=== PATIENT | female | born 1925 | race Hispanic/Latino ===

== ENCOUNTER 2016-07-04 08:50 | Inpatient (IN) | payer MEDICARE, OTHER ==
[2016-07-04 08:53] VITALS: BMI 23.8
[2016-07-04] MEDS ORDERED: Sodium Chloride 0.9% 500 ML IV ONE ×2 (09:37→10:00)
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
[2016-07-04 10:10] LABS: HEMATOCRIT 15.7 % (34.0-47.0); MEAN PLATELET VOLUME 7.8 fL (7.2-11.7)
[2016-07-04 10:16] LABS: MEAN CELL VOLUME 83.5 fL (81.0-99.0); MEAN CORPUSCULAR HEMOGLOBIN 26.9 pg (27.0-31.0); MEAN CORPUSCULAR HGB CONC 32.2 g/dL (33.0-37.0); WHITE BLOOD COUNT 31.4 K/uL (4.8-10.8)
[2016-07-04 10:20] LABS: PLATELET COUNT 16 K/uL (130-400); POTASSIUM 4.2 mmol/L (3.6-5.2)
[2016-07-04 10:21] LABS: INR 1.2
[2016-07-04 10:22] LABS: ALB/GLOB RATIO 1.1 (1.0-2.1); BILIRUBIN,TOTAL 0.7 mg/dL (0.2-1.3); TOTAL PROTEIN 6.1 g/dL (6.3-8.3)
[2016-07-04 10:23] LABS: CALCIUM 8.2 mg/dl (8.6-10.4)
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
[2016-07-04 10:45] LABS: LYMPH # 3.1 K/uL (1.0-4.3); MONO # 0.3 K/uL (0.0-0.8)
[2016-07-04 11:04] LABS: BLASTS 2 % (0-0); METAMYELOCYTE 10 % (0-0); MYELOCYTE 1 % (0-0); NEUTROPHIL 2 % (50-75); PROMYELOCYTE 1 % (0-0); REACTIVE LYMPHOCYTES 27 % (0-0); TOTAL CELLS COUNTED 100
--- NOTE | 2016-07-04 16:36 | RAD ---
PROCEDURE: CHEST RADIOGRAPH, 1 VIEW HISTORY: admission COMPARISON: 06/10/2016 FINDINGS: LUNGS: Clear. PLEURA: No pneumothorax or pleural fluid seen. CARDIOVASCULAR: Normal. OSSEOUS STRUCTURES: No significant abnormalities. VISUALIZED UPPER ABDOMEN: Normal. OTHER FINDINGS: None. IMPRESSION: No active disease.
[2016-07-04] MEDS: (Novolog) Insulin Aspart, Recombinant 100 u/ml 10 ml vial SC SCH (21:58)
[2016-07-05] MEDS: (Novolog) Insulin Aspart, Recombinant 100 u/ml 10 ml vial SC SCH ×4 (08:21→21:58)
[2016-07-05 08:31] LABS: RED CELL DISTRIBUTION WIDTH 17.2 % (11.5-14.5)
[2016-07-05 08:38] LABS: MEAN CELL VOLUME 83.7 fL (81.0-99.0); MEAN CORPUSCULAR HEMOGLOBIN 28.1 pg (27.0-31.0); MEAN CORPUSCULAR HGB CONC 33.6 g/dL (33.0-37.0); MEAN PLATELET VOLUME 11.5 fL (7.2-11.7); WHITE BLOOD COUNT 34.1 K/uL (4.8-10.8)
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
--- NOTE | 2016-07-06 00:31 | PN ---
DATE: 07/05/2016 SUBJECTIVE: The patient is seen today, 07/05/2016. She is not in any cardiopulmonary distress. The patient is status post packed RBCs transfusion. PHYSICAL EXAMINATION: VITAL SIGNS: Blood pressure is 137/72, temperature 97.8, respiratory rate 20, and pulse 65. HEENT: Pupils equal, reactive to light. Normal-appearing mucosa of the conjunctivae, oropharyngeal and nasal membrane mucosa. NECK: Supple, no JVD, no carotid bruit. No lymph node. No thyromegaly. CHEST AND LUNGS: Bilateral symmetrical expansion, good air exchange, no rales, no rhonchi. CARDIOVASCULAR: PMI not localized. S1, S2. No additional sounds. ABDOMEN: Normoactive bowel sounds, no tenderness, no organomegaly, no masses. EXTREMITIES: No cyanosis, no clubbing, no edema. CENTRAL NERVOUS SYSTEM: The patient is awake, but disoriented and confused and moves all extremities equally. ASSESSMENT: 1. 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 2. hypertension. 3. Thrombocytopenia. 4. Increased white count, leukemia. PLAN: Follow up with hematology consult, Dr. Mueller, and continue current medications. Sarika Ray MD cc: 167 TT: 07/06/2016 00:30:54 Confirmation # [id number] Dictation # [id number] mn
[2016-07-06 06:27] LABS: BASO % 1.7 % (0.0-2.0); EOS # 0.1 K/uL (0.0-0.7); EOS % 0.3 % (0.0-4.0); HEMATOCRIT 25.5 % (34.0-47.0); LYMPH # 3.2 K/uL (1.0-4.3); LYMPH % 10.7 % (20.0-40.0); MEAN CELL VOLUME 84.1 fL (81.0-99.0); MEAN CORPUSCULAR HEMOGLOBIN 28.1 pg (27.0-31.0); MEAN CORPUSCULAR HGB CONC 33.4 g/dL (33.0-37.0); MEAN PLATELET VOLUME 11.2 fL (7.2-11.7); MONO # 1.2 K/uL (0.0-0.8); MONO % 3.9 % (0.0-10.0); RED CELL DISTRIBUTION WIDTH 16.9 % (11.5-14.5); WHITE BLOOD COUNT 29.8 K/uL (4.8-10.8)
[2016-07-06 07:25] LABS: BASO # 0.5 K/uL (0.0-0.2)
[2016-07-06 07:26] LABS: PLATELET COUNT 14 K/uL (130-400)
[2016-07-06] MEDS: (Novolog) Insulin Aspart, Recombinant 100 u/ml 10 ml vial SC SCH ×4 (08:06→21:43)
--- NOTE | 2016-07-06 08:24 | HP ---
This is an 89-year-old female with history of multiple medical problems including myelodysp lasia with multiple hospital admissions for blood transfusion. [facility]. The patient complete blood count. Last blood count was on the day prio r to admission and was a hemoglobin of 6. The patient was transferred to Emergency Room where she wa s evaluated and she was found to have a hemoglobin of 5, white blood cell count 31.4, and platelet of 16. The patient was started on blood transfusion in the Emergency Room and she was she was admitted for further management. The patient did not have any emerged symptoms of chest pain, shortness of b reath, was negative. ALLERGY: No allergy. HOME MEDICATIONS: Include repaglinide mg once a day, acarbose 25 mg twice a day, Uloric 8 mg d aily, colchicine 0.6 mg daily, Zoloft 50 mg daily. SOCIAL HISTORY: No history of smoking, ETOH, or substance abuse. FAMILY HISTORY: Noncontributory. PAST MEDICAL HISTORY: Type 2 diabetes mellitus, dementia, myelodysplasia, hypertension. PHYSICAL EXAMINATION: The patient is in bed, comfortable. Not in any cardiopulmonary distress at the time of this examinat ion. Blood pressure 125/60, temperature 97.4, respiratory rate 20, and pulse 81. HEENT: Pupils equal, react to light. Normal-appearing mucosa of the conjunctivae, oropharyngeal, an d nasal membrane mucosa. NECK: No JVD. No carotid bruit, no lymph node, no thyromegaly. CHEST AND LUNGS: Bilateral symmetrical expansion. Good air exchange. No rales, no rhonchi. CARDIOVASCULAR SYSTEM: PMI not localized. S1, S2. No additional sounds. ABDOMEN: Normoactive bowel sounds, no tenderness, no organomegaly, no masses. EXTREMITIES: No cyanosis, no clubbing, no edema. CENTRAL NERVOUS SYSTEM: Alert, awake, but she is confused and disoriented to person, time, and place . Moves all extremities equally. ASSESSMENT: 1. Severe anemia, likely secondary to myelodysplasia. 2. Leukocytosis, rule out leukemia. 3. Type 2 diabetes mellitus. 4. Dementia. PLAN: Continue with the blood transfusion. Hematology consult, and follow recommendations. Will do Accu-Cheks with insulin coverage. Physical therapy. Alvin Venkatesh Ray MD cc: 167 TT: 07/04/2016 19:44:59 jn
[2016-07-06 10:33] LABS: BLASTS 5 % (0-0); METAMYELOCYTE 4 % (0-0); MYELOCYTE 6 % (0-0); NEUTROPHIL 6 % (50-75); REACTIVE LYMPHOCYTES 46 % (0-0); TOTAL CELLS COUNTED 100
[2016-07-06 16:20] VITALS: O2SAT 97
--- NOTE | 2016-07-07 02:54 | PN ---
DATE: 07/06/2016 SUBJECTIVE: The patient is seen today 07/06/2016, she is awake and conscious. PHYSICAL EXAMINATION VITAL SIGNS: Blood pressure 149/76. Temperature 99.3, respiratory rate 20, and pulse is 66. HEENT: Pupils equal, reactive to light. Normal-appearing mucosa of the conjunctivae, oropharyngeal and nasal membrane mucosa. NECK: Supple, no JVD, no carotid bruit, no lymph node, no thyromegaly. CHEST AND LUNGS: Bilateral symmetrical expansion, good air exchange, no rales, no rhonchi. CARDIOVASCULAR: PMI not localized, S1 and S2. No additional sounds. ABDOMEN: Normoactive bowel sounds, no tenderness, no organomegaly, no masses. EXTREMITIES: No cyanosis, no clubbing, no edema. CENTRAL NERVOUS SYSTEM: Awake and confused and moves all extremities equally. ASSESSMENT: 1. Anemia/thrombocytopenia secondary to myelodysplasia. 2. Leukocytosis with possible . PLAN: Follow up recommendations of . Continue current medications. Sarika Ray MD cc: 167 TT: 07/07/2016 02:53:17 Confirmation # [id number] Dictation # [id number] mn
[2016-07-07 06:47] LABS: HEMATOCRIT 25.9 % (34.0-47.0); MEAN CELL VOLUME 84.5 fL (81.0-99.0); MEAN CORPUSCULAR HEMOGLOBIN 28.9 pg (27.0-31.0); MEAN CORPUSCULAR HGB CONC 34.2 g/dL (33.0-37.0); MEAN PLATELET VOLUME 10.7 fL (7.2-11.7); RED CELL DISTRIBUTION WIDTH 17.1 % (11.5-14.5); WHITE BLOOD COUNT 29.1 K/uL (4.8-10.8)
[2016-07-07 06:55] LABS: PLATELET COUNT 12 K/uL (130-400)
[2016-07-07] MEDS: (Novolog) Insulin Aspart, Recombinant 100 u/ml 10 ml vial SC SCH ×2 (08:20→12:48)
[2016-07-07 08:43] VITALS: PULSE 83; RESP 18; TEMP 98.1
[2016-07-07 08:44] VITALS: BP 131/61
[2016-07-07 10:39] LABS: MONO # 1.2 K/uL (0.0-0.8)
[2016-07-07 10:48] LABS: EOSINOPHIL 1 % (0-4); METAMYELOCYTE 4 % (0-0); MYELOCYTE 5 % (0-0); NEUTROPHIL 2 % (50-75); REACTIVE LYMPHOCYTES 50 % (0-0); TOTAL CELLS COUNTED 100
[2016-07-07 10:49] LABS: BLASTS 4 % (0-0)
--- NOTE | 2016-07-07 12:42 | CP.PCM.PN ---
Subjective - Date & Time of Evaluation Date of Evaluation: 07/07/16 Time of Evaluation: 12:35 - Subjective Subjective: 89 Y/O FEMALE WITH PMHX MDS, FREQUENT BLOOD TRANSFUSION, SEVERE ANEMIA, S/P 2 UNITS PRBC, REPEAT H/H 8.9/25.9, PLT 12, LAB RESULT DISCUSSED W/ DR MCINTOSH AND DR WALTON, NO NEED FOR TRANSFUSION PER DR WALTON, RESP EASY AND UNLABORED, NAD, PT DISCHARGE TO [facility] PER DR MCINTOSH, MED REC DONE PER DR MCINTOSH, REPEAT MIKE IN ONE WEEK, F/U W/DR BRISENO IN ONE WEEK, CALL DR MCINTOSH OFFICE IF ANY FURTHER QUESTION, RETURN TO ED IF ANY WORSENING S/S, AGREE, VERBALIZE UNDERSTANDING. Objective - Vital Signs/Intake and Output Vital Signs (last 24 hours): Temp Pulse Resp BP Pulse Ox 98.1 F 83 18 131/61 97 07/07/16 08:42 07/07/16 08:42 07/07/16 08:42 07/07/16 08:42 07/07/16 08:42 Intake and Output: 07/07/16 07/07/16 06:59 18:59 Intake Total 500 Balance 500 - Medications Medications: Current Medications Colchicine (Colocrys) 0.6 mg PO DAILY [facility] Last Admin: 07/07/16 10:29 Dose: 0.6 mg Insulin Aspart (Novolog) 0 unit SC ACHS [facility] PRN Reason: Protocol Last Admin: 07/07/16 08:20 Dose: 2 unit Sertraline HCl (Zoloft) 50 mg PO HS [facility] Last Admin: 07/06/16 21:43 Dose: 50 mg Sodium Bicarbonate (Sodium Bicarbonate Tab) 650 mg PO BID [facility] Last Admin: 07/07/16 10:29 Dose: 650 mg - Labs Labs: 07/07/16 06:00 PT 12.9 SECONDS (9.7-12.2) H 07/04/16 10:00 INR 1.2 07/04/16 10:00 APTT 23 SECONDS (21-34) 07/04/16 10:00
--- NOTE | 2016-07-08 10:38 | DS ---
REASON FOR ADMISSION: This is an 89-year-old female with history of multiple medical probl ems who was admitted through Emergency Room for severe anemia secondary to myelodysplasia and thrombo cytopenia. COURSE OF HOSPITALIZATION: The patient was admitted to medical floor and she had hematology/oncology consultation done by Dr. Mueller's group. The patient was transfused 2 units of packed RBCs and hemog lobin increased from 5 current to 9. The patient was monitored in the hospital, was and she wa s discharged in stable condition back to [facility] to monitor her hemoglobin and hematocrit and t o physical therapy as tolerated. Antiplatelet therapy will be also stopped as patient will be moved to [facility]. 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 Sarika Ray MD cc: 167 TT: 07/08/2016 10:37:52 an
== END 2016-07-07 15:00 | DRG 812 ==
LOC: C.ER 08:50 → C.9E 11:03 → C.6T 11:42
PROVIDERS: ADMIT Internal Medicine; ATTEND Internal Medicine
PROC: 30233N1 Transfusion of Nonautologous Red Blood Cells into Peripheral Vein, Percutaneous Approach (ICD-10-PCS; principal; 2016-07-04)
DX: D46.9 Myelodysplastic syndrome, unspecified (principal); D61.818 Other pancytopenia; E11.22 Type 2 diabetes mellitus with diabetic chronic kidney disease; I12.9 Hypertensive chronic kidney disease with stage 1 through stage 4 chronic kidney disease, or unspecified chronic kidney disease; N18.9 Chronic kidney disease, unspecified; G30.9 Alzheimer's disease, unspecified; F02.80 Dementia in other diseases classified elsewhere, unspecified severity, without behavioral disturbance, psychotic disturbance, mood disturbance, and anxiety; M16.10 Unilateral primary osteoarthritis, unspecified hip; E78.5 Hyperlipidemia, unspecified; Z79.84 Long term (current) use of oral hypoglycemic drugs; Z98.49 Cataract extraction status, unspecified eye; Z95.2 Presence of prosthetic heart valve; Z90.710 Acquired absence of both cervix and uterus; D72.829 Elevated white blood cell count, unspecified; Z87.01 Personal history of pneumonia (recurrent)

== ENCOUNTER 2016-07-12 23:40 | Inpatient (IN) | payer MEDICARE, OTHER ==
[2016-07-12 23:58] VITALS: BMI 23.1
[2016-07-13] MEDS ORDERED: Sodium Chloride 0.9% 500 ML IV ONE (00:27)
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
[2016-07-13 01:19] LABS: BASO # 0.3 K/uL (0.0-0.2); BASO % 0.6 % (0.0-2.0); EOS # 0.1 K/uL (0.0-0.7); EOS % 0.1 % (0.0-4.0); HEMATOCRIT 18.6 % (34.0-47.0); LYMPH # 2.9 K/uL (1.0-4.3); LYMPH % 6.5 % (20.0-40.0); MEAN CELL VOLUME 83.7 fL (81.0-99.0); MEAN CORPUSCULAR HEMOGLOBIN 27.8 pg (27.0-31.0); MEAN CORPUSCULAR HGB CONC 33.2 g/dL (33.0-37.0); MEAN PLATELET VOLUME 12.5 fL (7.2-11.7); MONO # 0.2 K/uL (0.0-0.8); MONO % 0.4 % (0.0-10.0); NRBC % 0.1 % (0.0-2.0); RED CELL DISTRIBUTION WIDTH 16.7 % (11.5-14.5)
[2016-07-13 01:23] LABS: POTASSIUM 4.1 mmol/L (3.6-5.2)
[2016-07-13 01:25] LABS: BILIRUBIN,TOTAL 0.7 mg/dL (0.2-1.3); TOTAL PROTEIN 6.1 g/dL (6.3-8.3)
[2016-07-13 01:26] LABS: CALCIUM 8.8 mg/dl (8.6-10.4)
[2016-07-13 01:31] LABS: WHITE BLOOD COUNT 44.5 K/uL (4.8-10.8)
[2016-07-13 01:32] LABS: PLATELET COUNT 10 K/uL (130-400)
[2016-07-13 01:45] LABS: INR 1.2
[2016-07-13 02:47] LABS: BLASTS 6 % (0-0); EOSINOPHIL 1 % (0-4); METAMYELOCYTE 6 % (0-0); MYELOCYTE 6 % (0-0); NEUTROPHIL 39 % (50-75); REACTIVE LYMPHOCYTES 9 % (0-0); TOTAL CELLS COUNTED 100
[2016-07-13 02:49] LABS: SPHEROCYTES SLIGHT
[2016-07-13 02:50] LABS: GIANT PLATELETS PRESENT
[2016-07-13 03:35] LABS: RBC URINE 18 /hpf (0-3); URINE BACTERIA MANY (<OCC); URINE BILIRUBIN NEGATIVE (NEGATIVE); URINE BLOOD 1+ (NEGATIVE); URINE COLOR Amber (YELLOW); URINE GLUCOSE (UA) 2+ mg/dL (Normal); URINE KETONE NEGATIVE (NEGATIVE); URINE LEUKOCYTE ESTERASE 1+ Leu/uL (Negative); URINE PROTEIN 1+ mg/dL (NEGATIVE); URINE UROBILINOGEN NORMAL mg/dL (0.2-1.0); WBC URINE 52 /hpf (0-5)
--- NOTE | 2016-07-13 08:28 | RAD ---
PROCEDURE: CHEST RADIOGRAPH, 1 VIEW HISTORY: Shortness of breath COMPARISON: 07/04/2016 FINDINGS: LUNGS: No focal infiltrate or effusion. PLEURA: No pneumothorax or pleural fluid seen. CARDIOVASCULAR: Mesh device projecting over the heart. OSSEOUS STRUCTURES: No significant abnormalities. VISUALIZED UPPER ABDOMEN: Normal. OTHER FINDINGS: Postsurgical changes in the spine. IMPRESSION: No active disease.
[2016-07-13] MEDS: (Novolog) Insulin Aspart, Recombinant 100 u/ml 10 ml vial SC SCH ×2 (08:47→22:20)
[2016-07-13] MEDS: Bacitracin Ointment 30 GM TUBE TOP SCH (12:06)
[2016-07-13] MEDS: Multivitamin With Minerals Tab PO SCH (12:07)
[2016-07-13] MEDS ORDERED: Cefepime IV 1 gm in Dextrose 50 ML IVPB SCH (14:30)
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
[2016-07-13] MEDS: Cefepime IV 1 gm in Dextrose 50 ML IVPB SCH (18:24)
--- NOTE | 2016-07-13 22:05 | HP ---
HISTORY OF PRESENT ILLNESS: This is an 89-year-old female with history of multiple medical problems including myelodysplasia who is dependent on blood transfusion. The patient presented to E mergency Room as she was found to have fever and uncontrolled blood sugar and generalized weakness. The patient was evaluated in the Emergency Room and she was found to have hemoglobin of 6.2 and white blood cell count 44.5 and platelets of 10,000. The patient was started on packed RBCs transfusion a nd admitted for further management. The patient is having dementia and she is confused and no histor y is obtainable from the patient at the time of this examination. PAST MEDICAL HISTORY: Myelodysplasia, hypertension, type 2 diabetes mellitus, gouty arthritis. SOCIAL HISTORY: No history of smoking, ETOH or substance abuse. FAMILY HISTORY: Noncontributory. HOME MEDICATIONS: Include Zoloft 50 mg at bedtime, Namenda 10 mg daily, Aricept 10 mg, colchicine 0. 6 mg, sodium bicarbonate 650 mg twice a day. PHYSICAL EXAMINATION: GENERAL: The patient is in bed, comfortable, not in any cardiopulmonary distress. VITAL SIGNS: Blood pressure 151/72, temperature 97.5, respiratory rate 18. HEENT: Pale mucosa of the conjunctivae. NECK: Supple, no JVD, no carotid bruit, no lymph node, no thyromegaly. CHEST AND LUNGS: Bilateral symmetrical expansion, good air exchange, no rales, no rhonchi. CARDIOVASCULAR: PMI not localized. S1, S2. No additional sounds. ABDOMEN: Normoactive bowel sounds, no tenderness, no organomegaly, no masses. EXTREMITIES: No cyanosis, no clubbing, no edema. CENTRAL NERVOUS SYSTEM: Awake, but she is confused and disoriented. Moves all extremities equally. ASSESSMENT: 1. Myelodysplasia with severe anemia and thrombocytopenia. 2. Leukocytosis, rule out underlying infection and possible leukemia. 3. Hypertension. 4. Type 2 diabetes mellitus. PLAN: Hematology/oncology consult and follow recommendations. ID consultations and follow the recom mendations. Transfusion 2 units of packed RBCs and 1 unit of platelets. [facility] Venkatesh Ray MD cc: [phone] TT: 07/13/2016 22:04:59 jn
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
--- NOTE | 2016-07-13 23:12 | CARD ---
APPROVED REPORT EKG Measurement Heart [id number] <Conclusion> Normal sinus rhythm Nonspecific ST and T wave abnormality Abnormal ECG
[2016-07-14 07:16] LABS: POTASSIUM 3.5 mmol/L (3.6-5.2)
[2016-07-14 07:19] LABS: CALCIUM 8.6 mg/dl (8.6-10.4)
[2016-07-14 07:28] LABS: HEMATOCRIT 26.7 % (34.0-47.0); MEAN CORPUSCULAR HEMOGLOBIN 28.7 pg (27.0-31.0); MEAN CORPUSCULAR HGB CONC 33.4 g/dL (33.0-37.0); MEAN PLATELET VOLUME 9.4 fL (7.2-11.7); RED CELL DISTRIBUTION WIDTH 15.5 % (11.5-14.5)
[2016-07-14 07:51] LABS: PLATELET COUNT 35 K/uL (130-400); WHITE BLOOD COUNT 55.6 K/uL (4.8-10.8)
[2016-07-14] MEDS: (Novolog) Insulin Aspart, Recombinant 100 u/ml 10 ml vial SC SCH ×2 (08:19→21:30)
[2016-07-14] MEDS: Multivitamin With Minerals Tab PO SCH (10:27)
[2016-07-14] MEDS: Bacitracin Ointment 30 GM TUBE TOP SCH (10:28)
[2016-07-14 10:29] LABS: BLASTS 3 % (0-0); EOSINOPHIL 1 % (0-4); NEUTROPHIL 4 % (50-75); REACTIVE LYMPHOCYTES 44 % (0-0); TOTAL CELLS COUNTED 100
[2016-07-14] MEDS ORDERED: Potassium Chloride 20 mEq/15 ml LIQ UD PO ONE (11:15)
--- NOTE | 2016-07-14 12:03 | CT ---
PROCEDURE: CT Abdomen and Pelvis without intravenous contrast HISTORY: R/O ABDOMINAL hematoma COMPARISON: Comparison is made to the previous study dated 05/15/2016 TECHNIQUE: Axial and reformatted coronal and sagittal CT images of the abdomen and pelvis were obtained without IV or oral contrast administration. Contrast Dose: 0 Radiation dose: Total exam DLP = 632.3 mGy-cm. This CT exam was performed using one or more of the following dose reduction techniques: Automated exposure control, adjustment of the mA and/or kV according to patient size, and/or use of iterative reconstruction technique. FINDINGS: LOWER THORAX: Small right and trace left pleural effusion LIVER: Mild hepatomegaly is again noted. GALLBLADDER AND BILE DUCTS: The gallbladder was not visualized. PANCREAS: Unremarkable. No gross lesion or ductal dilatation. SPLEEN: The spleen is prominent in size measures up to 12.6 centimeter. ADRENALS: Unremarkable. No mass. KIDNEYS AND URETERS: Unremarkable. No hydronephrosis. No solid mass. VASCULATURE: Unremarkable. No aortic aneurysm. BOWEL: Interval appearance of diffuse thickening of the distal rectum surrounding with fat stranding/ inflammatory changes. Findings concern for proctitis/ colitis. No evidence of bowel obstruction. APPENDIX: O evidence of appendicitis. PERITONEUM: Unremarkable. No free fluid. No free air. LYMPH NODES: Unremarkable. No enlarged lymph nodes. BLADDER: [id number] urinary bladder wall thickening REPRODUCTIVE: Re- demonstration of cystic lesion at the left pelvis measures 5.1 x 5 centimeter likely represent left adnexal cyst. The uterus and the right adnexa are not visualized. BONES: No acute fracture. OTHER FINDINGS: None. IMPRESSION: Rectal wall thickening surrounding with inflammatory changes new compared to the previous exam suspicious for proctitis/ colitis. Other etiology such as neoplasm is less likely but not totally excluded. 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 Further assessment is recommended. [id number] urinary bladder wall thickening. Preliminary report was submitted by [facility].
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
[2016-07-14] MEDS: Cefepime IV 1 gm in Dextrose 50 ML IVPB SCH (18:18)
--- NOTE | 2016-07-14 18:20 | CP.PCM.PN ---
Subjective - Date & Time of Evaluation Date of Evaluation: 07/14/16 Time of Evaluation: 18:18 - Subjective Subjective: Patient weak, unable to swallow solid food, but is swallowing liquids, awakens easily and follows basic commands. No active bleeding. Discussed with son and , they want patient to get labs and PRN transfusions, but no resuscitative measures. Plan- Will put DNR/DNI order in chart Objective - Vital Signs/Intake and Output Vital Signs (last 24 hours): Temp Pulse Resp BP Pulse Ox 98.0 F 82 20 160/74 H 96 07/14/16 17:00 07/14/16 17:00 07/14/16 17:00 07/14/16 17:00 07/14/16 17:00 Intake and Output: 07/14/16 07/14/16 06:59 18:59 Intake Total 50 100 Balance 50 100 - Medications Medications: Current Medications Acetaminophen (Tylenol 325mg Tab) 650 mg PO Q6H PRN PRN Reason: Pain, moderate (4-7) Bacitracin (Bacitracin) 0 gm TOP DAILY [facility] Last Admin: 07/14/16 10:28 Dose: 1 applic Colchicine (Colocrys) 0.6 mg PO DAILY [facility] Last Admin: 07/14/16 10:28 Dose: 0.6 mg Cefepime HCl (Maxipime Iv 1 Gm Premix) 50 mls @ 100 mls/hr IVPB Q24H [facility] Last Admin: 07/13/16 18:24 Dose: 100 mls/hr Insulin Aspart (Novolog) 0 unit SC ACBHS [facility] PRN Reason: Protocol Last Admin: 07/14/16 08:19 Dose: Not Given Multivitamins/Minerals (Therapeutic-M Tab) 1 tab PO DAILY [facility] Last Admin: 07/14/16 10:27 Dose: 1 tab Sertraline HCl (Zoloft) 50 mg PO HS [facility] Last Admin: 07/13/16 21:37 Dose: 50 mg Sodium Bicarbonate (Sodium Bicarbonate Tab) 650 mg PO BID [facility] Last Admin: 07/14/16 10:27 Dose: 650 mg - Labs Labs: 07/14/16 07:00 07/14/16 07:00 PT 13.0 SECONDS (9.7-12.2) H 07/13/16 01:10 INR 1.2 07/13/16 01:10 APTT 26 SECONDS (21-34) 07/13/16 01:10
--- NOTE | 2016-07-14 23:12 | CP.PCM.PN ---
Subjective - Date & Time of Evaluation Date of Evaluation: 07/14/16 Time of Evaluation: 23:12 - Subjective Subjective: CHIEF COMPLAINTS TODAY : patient awake, weak, Eating poorly s/p 2unit blood NO ACTIVE BLEEDING SEEN ROS. as observed.PATIENT HAS DEMENTIA HEENT : N. Resp : No cough, wheezing ,pleuritic CP ,or hemoptysis Cardio : No anginal CP, PND, orthopnea, palpitation GI : No abd.pain, n/v ,diarrhea or GI bleeding . 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 Musculoskel : No joint swelling , Derm : MULTIPLE BRUISES ON EXTREMITIES Psych : Normal affect. Ext : No swelling ,calf pain PE. Pt. is alert awake in no distress. V.S As noted in the chart Head ,ear nose,throat and eyes : Normal. Neck : Supple with normal carotids. Lungs: Clear air entry. Heart : S1 & S2 normal with S4. No murmur. Abd : Soft non tender with normal bowel sounds. Neuro : Moves all ext. with no localized deficit. Ext : No edema with intact pulses.Non tender calves Derm : MULTIPLE BRUISES ON EXTREMITIES UPPER AND LOWER. LABS/RADIOLOGY: wbc 55.6 H/H 8.9 AND 26.7, PLT 35 cREATININE 1.3/32-IMPROVING uRINE CULTURE GNR/ LACTOBACILLUS SPECIES. bLOOD CULTURES -VE SO FAR ASSESSMENT/PLAN : IMPRESSION; -LEUKOCYTOSIS R/O SEPSIS - UROSEPSIS- GNR/LACTOBACILLUS -SEVERE ANEMIA AND MYELODYSPLASTIC SYNDROME -THROMBOCYTOPENIA QUESTIONABLE IMMUNE VS HEMOLYTIC. -DIABETES MELLITUS. -HYPERTENSION -CHRONIC KIDNEY DISEASE ? PRERENAL VERSUS RENAL. -ALZHEIMER'S DEMENTIA. PLAN; . D/C iv mAXIPIME 1 G ONCE A DAY DAILY.07/13/16. START iv mERREM 500 MG iv PIGGYBACK EVERY 8 HOURLY TO COVER FOR esbl eNTEROBACTERIACEAE / aDD iv VANCOMYCIN 1 G EVERY 24 HOURLY FOR GRAM-POSITIVE COVERAGE .07/14 WILL FOLLOW CULTURES TO ADJUST ANTIBIOTICS. HEMATOLOGY ONCOLOGY ON THE CASE. PATIENT HAS SEVERE MYELODYSPLASTIC SYNDROME Objective - Vital Signs/Intake and Output Vital Signs (last 24 hours): Temp Pulse Resp BP Pulse Ox 98.0 F 82 20 160/74 H 96 07/14/16 17:00 07/14/16 17:00 07/14/16 17:00 07/14/16 17:00 07/14/16 17:00 Intake and Output: 04/04/17 04/05/17 18:59 06:59 Intake Total 100 Balance 100 - Medications Medications: Current Medications Acetaminophen (Tylenol 325mg Tab) 650 mg PO Q6H PRN PRN Reason: Pain, moderate (4-7) Bacitracin (Bacitracin) 0 gm TOP DAILY [facility] Last Admin: 07/14/16 10:28 Dose: 1 applic Colchicine (Colocrys) 0.6 mg PO DAILY [facility] Last Admin: 07/14/16 10:28 Dose: 0.6 mg Cefepime HCl (Maxipime Iv 1 Gm Premix) 50 mls @ 100 mls/hr IVPB Q24H [facility] Last Admin: 07/14/16 18:18 Dose: 100 mls/hr Insulin Aspart (Novolog) 0 unit SC ACBHS [facility] PRN Reason: Protocol Last Admin: 07/14/16 21:30 Dose: 12 unit Multivitamins/Minerals (Therapeutic-M Tab) 1 tab PO DAILY [facility] Last Admin: 07/14/16 10:27 Dose: 1 tab Sertraline HCl (Zoloft) 50 mg PO HS [facility] Last Admin: 07/14/16 21:30 Dose: 50 mg Sodium Bicarbonate (Sodium Bicarbonate Tab) 650 mg PO BID [facility] Last Admin: 07/14/16 18:18 Dose: 650 mg - Labs Labs: 07/14/16 07:00 07/14/16 07:00 PT 13.0 SECONDS (9.7-12.2) H 07/13/16 01:10 INR 1.2 07/13/16 01:10 APTT 26 SECONDS (21-34) 07/13/16 01:10
[2016-07-14] MEDS: Meropenem 500 MG in Sodium Chloride 0.9% 100 ML IVPB SCH (23:35)
[2016-07-15 06:50] LABS: POTASSIUM 3.7 mmol/L (3.6-5.2)
[2016-07-15 06:53] LABS: BASO # 0.5 K/uL (0.0-0.2); BASO % 0.8 % (0.0-2.0); EOS # 0.2 K/uL (0.0-0.7); EOS % 0.3 % (0.0-4.0); HEMATOCRIT 25.9 % (34.0-47.0); LYMPH # 2.9 K/uL (1.0-4.3); LYMPH % 4.6 % (20.0-40.0); MEAN CELL VOLUME 86.5 fL (81.0-99.0); MEAN CORPUSCULAR HGB CONC 33.5 g/dL (33.0-37.0); MEAN PLATELET VOLUME 9.7 fL (7.2-11.7); MONO # 1.8 K/uL (0.0-0.8); MONO % 2.8 % (0.0-10.0)
[2016-07-15 06:54] LABS: CALCIUM 8.2 mg/dl (8.6-10.4)
[2016-07-15 06:57] LABS: PLATELET COUNT 18 K/uL (130-400); WHITE BLOOD COUNT 62.1 K/uL (4.8-10.8)
[2016-07-15] MEDS: Meropenem 500 MG in Sodium Chloride 0.9% 100 ML IVPB SCH ×2 (07:00→13:55)
--- NOTE | 2016-07-15 07:26 | PN ---
DATE: 07/14/2016 The patient is seen today, 07/14/2016. Blood pressure 150/74, temperature 98.2, respiratory rate 50, and pulse 82. HEENT: Pale mucosa of the conjunctivae. NECK: Supple. No JVD, no carotid bruit, no lymph node, no thyromegaly. CHEST AND LUNGS: Bilateral symmetrical expansion. Good air exchange. No rales , no rhonchi. CARDIOVASCULAR: S1, S2, no adventitious sounds. ABDOMEN: Normoactive bowel sounds. No tenderness, no organomegaly, no masses. EXTREMITIES: No cyanosis, no clubbing, no edema. CENTRAL NERVOUS SYSTEM: AOOx3. NEUROLOGICALLY: Moves all extremities, and no lateralization. Blood work done today showed white blood cell count of 55.6, hemoglobin 8.9, and hematocrit 35%. Blood sugar is slightly elevated. ASSESSMENT: 1. 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 2. Leukocytosis. , of undetermined etiology. . Discussed with the and 2 sons. Continue current management and antibiotics. [facility] Venkatesh Ray MD cc: [id number] TT: 07/14/2016 22:20:49 Confirmation # [id number] Dictation # [id number] 07/15/2016 06:24:59 MTDD
[2016-07-15] MEDS: (Novolog) Insulin Aspart, Recombinant 100 u/ml 10 ml vial SC SCH ×3 (08:29→17:34)
[2016-07-15 08:46] LABS: BLASTS 6 % (0-0); MYELOCYTE 1 % (0-0); NEUTROPHIL 4 % (50-75); REACTIVE LYMPHOCYTES 44 % (0-0); TOTAL CELLS COUNTED 100
[2016-07-15 08:48] LABS: LARGE PLATELETS PRESENT
[2016-07-15] MEDS: Multivitamin With Minerals Tab PO SCH (10:55)
--- NOTE | 2016-07-15 11:41 | CP.PCM.PN ---
Subjective - Date & Time of Evaluation Date of Evaluation: 07/15/16 Time of Evaluation: 09:00 - Subjective Subjective: Patient is mildly confused, offers no complaints. patient answers each question with ' yes". Objective - Vital Signs/Intake and Output Vital Signs (last 24 hours): Temp Pulse Resp BP Pulse Ox 995 F H 98 H 18 159/67 H 98 07/15/16 09:00 07/15/16 09:00 07/15/16 09:00 07/15/16 09:00 07/15/16 09:00 Intake and Output: 07/15/16 07/15/16 06:59 18:59 Intake Total 550 Balance 550 - Medications Medications: Current Medications Acetaminophen (Tylenol 325mg Tab) 650 mg PO Q6H PRN PRN Reason: Pain, moderate (4-7) Last Admin: 07/15/16 10:55 Dose: 650 mg Bacitracin (Bacitracin) 0 gm TOP DAILY [facility] Last Admin: 07/14/16 10:28 Dose: 1 applic Colchicine (Colocrys) 0.6 mg PO DAILY [facility] Last Admin: 07/14/16 10:28 Dose: 0.6 mg Vancomycin HCl 1 gm/ Sodium (Chloride) 250 mls @ 166.7 mls/hr IVPB Q24H [facility] Last Admin: 07/15/16 00:40 Dose: 166.7 mls/hr Meropenem 500 mg/ Sodium (Chloride) 100 mls @ 100 mls/hr IVPB Q8 [facility] Last Admin: 07/15/16 07:00 Dose: 100 mls/hr Insulin Aspart (Novolog) 0 unit SC ACBHS [facility] PRN Reason: Protocol Last Admin: 07/15/16 08:29 Dose: 8 unit Multivitamins/Minerals (Therapeutic-M Tab) 1 tab PO DAILY [facility] Last Admin: 07/15/16 10:55 Dose: 1 tab Sertraline HCl (Zoloft) 50 mg PO HS [facility] Last Admin: 07/14/16 21:30 Dose: 50 mg Sodium Bicarbonate (Sodium Bicarbonate Tab) 650 mg PO BID [facility] Last Admin: 07/15/16 10:55 Dose: 650 mg - Labs Labs: 07/15/16 06:31 07/15/16 06:31 PT 13.0 SECONDS (9.7-12.2) H 07/13/16 01:10 INR 1.2 07/13/16 01:10 APTT 26 SECONDS (21-34) 07/13/16 01:10 - Constitutional Appears: Chronically Ill - Head Exam Head Exam: ATRAUMATIC - Eye Exam Eye Exam: Normal appearance Additional comments: pinpointed - ENT Exam ENT Exam: Mucous Membranes Dry - Neck Exam Neck Exam: Normal Inspection - Respiratory Exam Respiratory Exam: Decreased Breath Sounds Additional comments: Shortness of breath worsens with eating - Cardiovascular Exam Cardiovascular Exam: Tachycardia - GI/Abdominal Exam GI & Abdominal Exam: Diminished Bowel Sounds - Rectal Exam Rectal Exam: Deferred - Extremities Exam Extremities Exam: Normal Inspection - Back Exam Back Exam: NORMAL INSPECTION - Neurological Exam Neurological Exam: Alert, Altered Neuro motor strength exam: Left Upper Extremity: 2/, Right Upper Extremity: 2/ , Left Lower Extremity: 2, Right Lower Extremity: 2 - Psychiatric Exam Psychiatric exam: Flat Affect - Skin Skin Exam: Pallor Assessment and Plan - Assessment and Plan (Free Text) Assessment: Patient examined in bed while trying to have breakfast. patient is alert, but confused. Patient did not know where she was, was just nodding the head.Patient makes eye contacts and answers each question with " yes'. I assisted her with feedings. Patient shows fair appetite. Patient tolerates liquids and soft food well. When it comes to mechanically soft food, patient easily gets short of breath while chewing. O2sat 98% NC, HR 98. Skin is pale. Hb 8.7 this morning. Oral mucousa very dry. Poor skin turgor. WBC aida up to 62.1 today.Platelets 18.0. Patient made DNR/DNI last night by Doctor Curran. As per note, Doctor Rueda had discussion with the son Tamir and Javon. They want blood transfusion and blood work to be continued and agreed with DNR/DNI. Impression * This is a very sick woman with long lasting Hx of Myelodysplasia , dependent of blood transfusion * Patient is very weak and unable to perform any of ADLs * Shortness of breath with effort * Confusion * I feel this patient is at the end of her life Suggestion * Would change diet to puree soft diet for better intake * Assistance with feedings at EACH meal to prevent malnutrition and dehydration * Would refer to a hospice, as comfort care would be the best level of care for this very sick patient.
[2016-07-15] MEDS: Bacitracin Ointment 30 GM TUBE TOP SCH (12:26)
[2016-07-15] MEDS: Nystatin 100,000 Units/ml Oral Susp 5 ml UD PO SCH ×2 (13:56→17:37)
--- NOTE | 2016-07-15 17:40 | CP.PCM.PN ---
Subjective - Date & Time of Evaluation Date of Evaluation: 07/15/16 Time of Evaluation: 17:40 - Subjective Subjective: CHIEF COMPLAINTS TODAY : tmax 99.0 patient awake, weak, Eating poorly ROS. as observed.PATIENT HAS DEMENTIA HEENT : N. Resp : No cough, wheezing ,pleuritic CP ,or hemoptysis Cardio : No anginal CP, PND, orthopnea, palpitation GI : No abd.pain, n/v ,diarrhea or GI bleeding . 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 Musculoskel : No joint swelling , Derm : MULTIPLE BRUISES ON EXTREMITIES Psych : Normal affect. Ext : No swelling ,calf pain PE. Pt. is awake in no distress. V.S As noted in the chart Head ,ear nose,throat and eyes : Normal. Neck : Supple with normal carotids. Lungs: Clear air entry. Heart : S1 & S2 normal with S4. No murmur. Abd : Soft non tender with normal bowel sounds. Neuro : Moves all ext. with no localized deficit. Ext : No edema with intact pulses.Non tender calves Derm : MULTIPLE BRUISES ON EXTREMITIES UPPER AND LOWER. LABS/RADIOLOGY: wbc 62.1 H/H 8.7 AND 25.9, PLT 18k cREATININE 1.2/31-IMPROVING uRINE CULTURE- E.COLI S -IMIPENEM AND LACTOBACILLUS. bLOOD CULTURES -VE SO FAR ASSESSMENT/PLAN : IMPRESSION; -LEUKOCYTOSIS ?MYELOPROLIFERATIVE SYNDROME/OR MARGINATION - UROSEPSIS- GNR/LACTOBACILLUS -SEVERE ANEMIA -THROMBOCYTOPENIA QUESTIONABLE IMMUNE VS HEMOLYTIC. -DIABETES MELLITUS. -HYPERTENSION -CHRONIC KIDNEY DISEASE ? PRERENAL VERSUS RENAL. -ALZHEIMER'S DEMENTIA. PLAN; . D/C iv mAXIPIME 1 G ONCE A DAY DAILY.07/13/16. ON iv mERREM 500 MG iv PIGGYBACK EVERY 8 HOURLY TO COVER FOR esbl eNTEROBACTERIACEAE 07/14/16 aDD iv VANCOMYCIN 1 G EVERY 24 HOURLY FOR GRAM-POSITIVE COVERAGE .07/14 HEMATOLOGY ONCOLOGY ON THE CASE.WILL DISCUSS. PALLIATIVE CARE ON CASE Objective - Vital Signs/Intake and Output Vital Signs (last 24 hours): Temp Pulse Resp BP Pulse Ox 995 F H 98 H 18 159/67 H 98 07/15/16 09:00 07/15/16 09:00 07/15/16 09:00 07/15/16 09:00 07/15/16 09:00 Intake and Output: 07/15/16 07/15/16 06:59 18:59 Intake Total 550 Balance 550 - Medications Medications: Current Medications Acetaminophen (Tylenol 325mg Tab) 650 mg PO Q6H PRN PRN Reason: Pain, moderate (4-7) Last Admin: 07/15/16 10:55 Dose: 650 mg Bacitracin (Bacitracin) 0 gm TOP DAILY [facility] Last Admin: 07/15/16 12:26 Dose: 1 applic Colchicine (Colocrys) 0.6 mg PO DAILY [facility] Last Admin: 07/15/16 12:26 Dose: 0.6 mg Vancomycin HCl 1 gm/ Sodium (Chloride) 250 mls @ 166.7 mls/hr IVPB Q24H [facility] Last Admin: 07/15/16 00:40 Dose: 166.7 mls/hr Meropenem 500 mg/ Sodium (Chloride) 100 mls @ 100 mls/hr IVPB Q8 [facility] Last Admin: 07/15/16 13:55 Dose: 100 mls/hr Insulin Aspart (Novolog) 0 unit SC ACTID [facility] PRN Reason: Protocol Last Admin: 07/15/16 12:26 Dose: 10 unit Multivitamins/Minerals (Therapeutic-M Tab) 1 tab PO DAILY [facility] Last Admin: 07/15/16 10:55 Dose: 1 tab Nystatin (Nystatin Oral Susp) 5 ml PO QID [facility] Last Admin: 07/15/16 13:56 Dose: 5 ml Sertraline HCl (Zoloft) 50 mg PO HS [facility] Last Admin: 07/14/16 21:30 Dose: 50 mg Sodium Bicarbonate (Sodium Bicarbonate Tab) 650 mg PO BID [facility] Last Admin: 07/15/16 10:55 Dose: 650 mg - Labs Labs: 07/15/16 06:31 07/15/16 06:31 PT 13.0 SECONDS (9.7-12.2) H 07/13/16 01:10 INR 1.2 07/13/16 01:10 APTT 26 SECONDS (21-34) 07/13/16 01:10
[2016-07-15] MEDS: Sodium Chloride 0.9% 1,000 ML IV SCH (23:10)
[2016-07-16] MEDS: Meropenem 500 MG in Sodium Chloride 0.9% 100 ML IVPB SCH ×2 (06:12→14:06)
--- NOTE | 2016-07-16 06:50 | PN ---
DATE: 07/15/2016 The patient is seen today, 07/15/2016. PHYSICAL EXAMINATION: VITAL SIGNS: Blood pressure is 159/67, temperature 99.5, respiratory rate 18, and pulse 98. HEENT: Pale mucosa of the conjuctivae. NECK: Supple, no JVD, no carotid bruit, no lymph node, no thyromegaly. CHEST AND LUNGS: Bilateral symmetrical expansion, good air exchange. No rales , no rhonchi. CARDIOVASCULAR: PMI not localized. S1, S2. No additional sounds. ABDOMEN: Normoactive bowel sounds. No tenderness, no organomegaly, no masses. EXTREMITIES: No cyanosis, no clubbing, no edema. CENTRAL NERVOUS SYSTEM: The patient is lethargic and confused. LABORATORY DATA: Blood sugar is elevated. ASSESSMENT: 1. Myelodysplasia with anemia and thrombocytopenia. 2. 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 3. Type 2 diabetes mellitus with hyperglycemia. PLAN: We will continue insulin coverage and give patient normal saline and Levemir long-acting insulin. Guarded prognosis. Sarika Ray MD cc: [phone] TT: 07/16/2016 02:33:49 Confirmation # [id number] Dictation # [id number] dn 07/16/2016 05:49:38 MTDShannon
[2016-07-16] MEDS: Sodium Chloride 0.9% 1,000 ML IV SCH (08:34)
[2016-07-16] MEDS: (Novolog) Insulin Aspart, Recombinant 100 u/ml 10 ml vial SC SCH ×4 (08:39→22:47)
[2016-07-16] MEDS: Nystatin 100,000 Units/ml Oral Susp 5 ml UD PO SCH ×4 (11:12→23:04)
[2016-07-16] MEDS: Multivitamin With Minerals Tab PO SCH (11:12)
[2016-07-16] MEDS: Insulin Detemir 100 units/ml Vial (Levemir) SC SCH ×3 (11:17→22:46)
[2016-07-16] MEDS: Bacitracin Ointment 30 GM TUBE TOP SCH (11:22)
[2016-07-16 14:49] LABS: BASO % 1.4 % (0.0-2.0); EOS # 0.3 K/uL (0.0-0.7); EOS % 0.5 % (0.0-4.0); HEMATOCRIT 24.9 % (34.0-47.0); LYMPH # 3.8 K/uL (1.0-4.3); LYMPH % 5.1 % (20.0-40.0); MEAN CELL VOLUME 88.2 fL (81.0-99.0); MEAN CORPUSCULAR HEMOGLOBIN 29.1 pg (27.0-31.0); MEAN PLATELET VOLUME 10.9 fL (7.2-11.7); MONO # 7.3 K/uL (0.0-0.8); MONO % 9.8 % (0.0-10.0); RED CELL DISTRIBUTION WIDTH 16.7 % (11.5-14.5)
[2016-07-16 14:51] LABS: PLATELET COUNT 11 K/uL (130-400); WHITE BLOOD COUNT 74.2 K/uL (4.8-10.8)
[2016-07-16 15:00] LABS: POTASSIUM 3.7 mmol/L (3.6-5.2)
[2016-07-16 15:04] LABS: CALCIUM 7.7 mg/dl (8.6-10.4)
[2016-07-16] MEDS: Albuterol-Ipratrop 3 mg / 0.5 (3 ml) UD INH SCH ×2 (15:07→21:15)
[2016-07-16 15:21] LABS: NEUTROPHIL 8 % (50-75); TOTAL CELLS COUNTED 100
[2016-07-16 15:23] LABS: BLASTS 3 % (0-0); REACTIVE LYMPHOCYTES 42 % (0-0)
--- NOTE | 2016-07-16 15:55 | CP.PCM.PN ---
Subjective - Date & Time of Evaluation Date of Evaluation: 07/16/16 Time of Evaluation: 11:00 - Subjective Subjective: lethargic, awake,responsive Objective - Vital Signs/Intake and Output Vital Signs (last 24 hours): Temp Pulse Resp BP Pulse Ox 99.7 F H 95 H 22 175/82 H 96 07/16/16 07:00 07/16/16 07:00 07/16/16 07:00 07/16/16 15:29 07/16/16 07:00 Intake and Output: 07/16/16 07/16/16 06:59 18:59 Intake Total 800 Balance 800 - Medications Medications: Current Medications Acetaminophen (Tylenol 325mg Tab) 650 mg PO Q6H PRN PRN Reason: Pain, moderate (4-7) Last Admin: 07/15/16 10:55 Dose: 650 mg Albuterol/Ipratropium (Duoneb 3 Mg/0.5 Mg (3 Ml) Ud) 3 ml INH RQ6 [facility] Last Admin: 07/16/16 15:07 Dose: 3 ml Bacitracin (Bacitracin) 0 gm TOP DAILY [facility] [place] Last Admin: 07/16/16 11:22 Dose: 1 applic Colchicine (Colocrys) 0.6 mg PO DAILY [facility] [place] Last Admin: 07/16/16 11:13 Dose: 0.6 mg Vancomycin HCl 1 gm/ Sodium (Chloride) 250 mls @ 166.7 mls/hr IVPB Q24H [facility] [place] Last Admin: 07/16/16 00:35 Dose: 166.7 mls/hr Meropenem 500 mg/ Sodium (Chloride) 100 mls @ 100 mls/hr IVPB Q8 [facility] [place] Last Admin: 07/16/16 14:06 Dose: 100 mls/hr Sodium Chloride (Sodium Chloride 0.9%) 1,000 mls @ 100 mls/hr IV .Q10H [facility] [place] Last Admin: 07/16/16 08:34 Dose: Not Given Insulin Aspart (Novolog) 0 unit SC ACTID [facility] [place] PRN Reason: Protocol Last Admin: 07/16/16 12:50 Dose: 10 unit Insulin Detemir (Levemir) 15 unit SC Q12 [facility] [place] Last Admin: 07/16/16 11:17 Dose: 15 unit Multivitamins/Minerals (Therapeutic-M Tab) 1 tab PO DAILY [facility] [place] Last Admin: 07/16/16 11:12 Dose: 1 tab Nystatin (Nystatin Oral Susp) 5 ml PO QID [facility] Last Admin: 07/16/16 14:07 Dose: 5 ml Sertraline HCl (Zoloft) 50 mg PO HS [facility] Last Admin: 07/14/16 21:30 Dose: 50 mg Sodium Bicarbonate (Sodium Bicarbonate Tab) 650 mg PO BID [facility] Last Admin: 07/16/16 11:12 Dose: 650 mg - Labs Labs: 07/16/16 14:26 07/16/16 14:26 PT 13.0 SECONDS (9.7-12.2) H 07/13/16 01:10 INR 1.2 07/13/16 01:10 APTT 26 SECONDS (21-34) 07/13/16 01:10 Assessment and Plan - Assessment and Plan (Free Text) Assessment: Patient noticed with short of breath and very congested with audible wheezing. at the bedside was feeding her earlier. IV fluids held and lasix 20mg iv push given. Ordered stat chest xray to rule out aspiration pneumonia. Stat nebulizer treatments given , monitered closely. D/W DR Ray, code status DNR/ DNI.
[2016-07-16] MEDS ORDERED: MethylPREDNISolone 40 mg Vial IVP STA (16:09)
--- NOTE | 2016-07-16 16:30 | RAD ---
HISTORY: sob , r/o aspiration pneumonia COMPARISON: Chest x-ray performed 07/13/16 TECHNIQUE: Chest, one view. FINDINGS: LUNGS: No focal consolidation. Please note that chest x-ray has limited sensitivity for the detection of pulmonary masses. PLEURA: No significant pleural effusion identified. No definite pneumothorax . CARDIOVASCULAR: Heart size appears within normal limits. Ectatic aorta. Atherosclerotic calcifications of the aorta. OSSEOUS STRUCTURES: Degenerative changes of the spine. Cervical fusion hardware. VISUALIZED UPPER ABDOMEN: Unremarkable. OTHER FINDINGS: None. IMPRESSION: No focal consolidation, significant pleural effusion, or definite pneumothorax identified.
--- NOTE | 2016-07-16 16:47 | CP.PCM.PN ---
Subjective - Date & Time of Evaluation Date of Evaluation: 07/16/16 Time of Evaluation: 16:47 - Subjective Subjective: CHIEF COMPLAINTS TODAY : afebrile patient awake, weak, EATING POORLY /? ORAL THRUSH ROS. as observed.PATIENT HAS DEMENTIA HEENT : N. Resp : No cough, wheezing ,pleuritic CP ,or hemoptysis Cardio : No anginal CP, PND, orthopnea, palpitation GI : No abd.pain, n/v ,diarrhea or GI bleeding . DINING ROOM HELPER : No headache, vertigo, focal deficit. Musculoskel : No joint swelling , Derm : MULTIPLE BRUISES ON EXTREMITIES Psych : Normal affect. Ext : No swelling ,calf pain PE. Pt. is awake in no distress. V.S As noted in the chart Head ,ear nose,throat and eyes : Normal. Neck : Supple with normal carotids. Lungs: Clear air entry. Heart : S1 & S2 normal with S4. No murmur. Abd : Soft non tender with normal bowel sounds. Neuro : Moves all ext. with no localized deficit. Ext : No edema with intact pulses.Non tender calves Derm : MULTIPLE BRUISES ON EXTREMITIES UPPER AND LOWER. LABS/RADIOLOGY: wbc 74.2 H/H 8.2 AND 24.9, PLT 11k cREATININE 1.2/34 URINE CULTURE- E.COLI S -IMIPENEM AND LACTOBACILLUS. BLOOD CULTURES -VE SO FAR ASSESSMENT/PLAN : IMPRESSION; -LEUKOCYTOSIS ?MYELOPROLIFERATIVE SYNDROME/OR MARGINATION - UROSEPSIS- GNR/LACTOBACILLUS -SEVERE ANEMIA -THROMBOCYTOPENIA QUESTIONABLE IMMUNE VS HEMOLYTIC. -DIABETES MELLITUS. -HYPERTENSION -CHRONIC KIDNEY DISEASE ? PRERENAL VERSUS RENAL. -ALZHEIMER'S DEMENTIA. PLAN; ADD iv DIFLUCAN 100 MG ONCE A DAY DAILY X5 DAYS D/C iv mAXIPIME 1 G ONCE A DAY DAILY.07/13/16. 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 CONTINUE iv VANCOMYCIN 1 G EVERY 24 HOURLY FOR GRAM-POSITIVE COVERAGE .07/14 VANCO TROUGH IN A.M. AND NOTIFY ME HEMATOLOGY ONCOLOGY ON THE CASE.WILL DISCUSS. PALLIATIVE CARE ON CASE CASE DISCUSSED WITH NURSE PRACTITIONER.. HOLD DISCHARGE PATIENT WITH SEVERE THROMBOCYTOPENIA. Objective - Vital Signs/Intake and Output Vital Signs (last 24 hours): Temp Pulse Resp BP Pulse Ox 99.7 F H 95 H 22 175/82 H 96 07/16/16 07:00 07/16/16 07:00 07/16/16 07:00 07/16/16 15:29 07/16/16 07:00 Intake and Output: 07/16/16 07/16/16 06:59 18:59 Intake Total 800 950 Balance 800 950 - Medications Medications: Current Medications Acetaminophen (Tylenol 325mg Tab) 650 mg PO Q6H PRN PRN Reason: Pain, moderate (4-7) Last Admin: 07/15/16 10:55 Dose: 650 mg Albuterol/Ipratropium (Duoneb 3 Mg/0.5 Mg (3 Ml) Ud) 3 ml INH RQ6 [facility] Last Admin: 07/16/16 15:07 Dose: 3 ml Bacitracin (Bacitracin) 0 gm TOP DAILY [facility] Last Admin: 07/16/16 11:22 Dose: 1 applic Colchicine (Colocrys) 0.6 mg PO DAILY [facility] Last Admin: 07/16/16 11:13 Dose: 0.6 mg Vancomycin HCl 1 gm/ Sodium (Chloride) 250 mls @ 166.7 mls/hr IVPB Q24H [facility] Last Admin: 07/16/16 00:35 Dose: 166.7 mls/hr Meropenem 500 mg/ Sodium (Chloride) 100 mls @ 100 mls/hr IVPB Q8 [facility] Last Admin: 07/16/16 14:06 Dose: 100 mls/hr Sodium Chloride (Sodium Chloride 0.9%) 1,000 mls @ 100 mls/hr IV .Q10H [facility] Last Admin: 07/16/16 08:34 Dose: Not Given Insulin Aspart (Novolog) 0 unit SC ACTID [facility] PRN Reason: Protocol Last Admin: 07/16/16 12:50 Dose: 10 unit Insulin Detemir (Levemir) 15 unit SC Q12 [facility] Last Admin: 07/16/16 11:17 Dose: 15 unit Multivitamins/Minerals (Therapeutic-M Tab) 1 tab PO DAILY [facility] Last Admin: 07/16/16 11:12 Dose: 1 tab Nystatin (Nystatin Oral Susp) 5 ml PO QID [facility] Last Admin: 07/16/16 14:07 Dose: 5 ml Sertraline HCl (Zoloft) 50 mg PO HS [facility] Last Admin: 07/14/16 21:30 Dose: 50 mg Sodium Bicarbonate (Sodium Bicarbonate Tab) 650 mg PO BID [facility] Last Admin: 07/16/16 11:12 Dose: 650 mg - Labs Labs: 07/16/16 14:26 07/16/16 14:26 PT 13.0 SECONDS (9.7-12.2) H 07/13/16 01:10 INR 1.2 07/13/16 01:10 APTT 26 SECONDS (21-34) 07/13/16 01:10
--- NOTE | 2016-07-16 21:04 | PN ---
DATE: 07/16/2016 SUBJECTIVE: The patient is seen today, 07/16/2016. She is lethargic and short of breath. PHYSICAL EXAMINATION: VITAL SIGNS: The patient is afebrile with blood pressure of 153/75, temperature 99.7, respiratory rate 20, and pulse 94. HEENT: Normal-appearing mucosa of the conjunctivae. NECK: Supple, no JVD, no carotid bruit, no lymph node, no thyromegaly. CHEST AND LUNGS: Bilateral chest expansion. A few basilar rales. CARDIOVASCULAR: PMI not localized. S1, S2. No additional sounds. ABDOMEN: Normoactive bowel sounds, no tenderness, no organomegaly, no masses. EXTREMITIES: No cyanosis, no clubbing, no edema. CENTRAL NERVOUS SYSTEM: The patient was lethargic and not following commands. LABORATORY DATA: Blood work today showed white blood cell count of 72,000, hemoglobin 8.2, platelets of 11. ASSESSMENT: 1. Major dysplasia with leukemia transformation. 2. Severe anemia, thrombocytopenia, status post packed RBCs and platelet transfusion. 3. Type 2 diabetes mellitus, with hyperglycemia. PLAN: We will give patient Lasix. Start patient on BiPAP. Pulmonary consultation. Discussed the patient's condition with Oncology. Awaiting for family decision regarding hospice care. Guarded prognosis. Sarika Ray MD cc: [phone] TT: 07/16/2016 21:03:48 Confirmation # [id number] Dictation # [id number] MTDD
[2016-07-16] MEDS: MethylPREDNISolone 40 mg Vial IVP SCH (21:56)
[2016-07-17] MEDS: Albuterol-Ipratrop 3 mg / 0.5 (3 ml) UD INH SCH ×4 (01:07→19:04)
[2016-07-17] MEDS: MethylPREDNISolone 40 mg Vial IVP SCH ×3 (06:13→21:57)
[2016-07-17] MEDS: (Novolog) Insulin Aspart, Recombinant 100 u/ml 10 ml vial SC SCH ×6 (08:47→21:57)
[2016-07-17] MEDS ORDERED: Fluconazole IV 200mg/100 ml NS 100 ML IVPB SCH (10:00)
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
[2016-07-17 11:18] LABS: NRBC % 0.1 % (0.0-2.0); RED CELL DISTRIBUTION WIDTH 16.7 % (11.5-14.5)
[2016-07-17 11:26] LABS: POTASSIUM 3.3 mmol/L (3.6-5.2)
[2016-07-17 11:27] LABS: HEMATOCRIT 23.3 % (34.0-47.0); LYMPH # 1.2 K/uL (1.0-4.3); LYMPH % 1.6 % (20.0-40.0); MEAN CELL VOLUME 88.4 fL (81.0-99.0); MEAN CORPUSCULAR HEMOGLOBIN 28.4 pg (27.0-31.0); MEAN CORPUSCULAR HGB CONC 32.1 g/dL (33.0-37.0); MEAN PLATELET VOLUME 10.8 fL (7.2-11.7); MONO # 0.4 K/uL (0.0-0.8); MONO % 0.6 % (0.0-10.0)
[2016-07-17 11:30] LABS: CALCIUM 8.1 mg/dl (8.6-10.4)
[2016-07-17 11:31] LABS: PLATELET COUNT 10 K/uL (130-400); WHITE BLOOD COUNT 74.9 K/uL (4.8-10.8)
[2016-07-17 11:56] LABS: BLASTS 4 % (0-0); EOSINOPHIL 1 % (0-4); NEUTROPHIL 7 % (50-75); TOTAL CELLS COUNTED 100
[2016-07-17 11:57] LABS: REACTIVE LYMPHOCYTES 34 % (0-0)
[2016-07-17] MEDS: Nystatin 100,000 Units/ml Oral Susp 5 ml UD PO SCH ×4 (11:59→23:05)
[2016-07-17] MEDS: Multivitamin With Minerals Tab PO SCH (12:00)
[2016-07-17] MEDS: Insulin Detemir 100 units/ml Vial (Levemir) SC SCH ×3 (12:02→21:56)
[2016-07-17] MEDS: Fluconazole IV 100mg/50 ml NS 50 ML IVPB SCH (12:03)
[2016-07-17] MEDS: Bacitracin Ointment 30 GM TUBE TOP SCH (12:16)
[2016-07-17] MEDS: Potassium Chloride 10 mEq 100 ML IVPB SCH ×2 (14:54→17:16)
--- NOTE | 2016-07-17 20:09 | PN ---
DATE: 07/17/2016 The patient is seen today, 07/17/2016. The patient is less short of breath. Blood pressure 179/67, temperature 98.2, respiratory rate 20, and pulse 92. HEENT: AURE , normal appearing mucosa of the conjunctivae. NECK: Supple. No JVD. No carotid bruit. No lymph node. No thyromegaly. CHEST AND LUNGS: Bilateral symmetrical expansion. Good air exchange. Bilateral basilar rales. CARDIOVASCULAR SYSTEM: PMI not localized. S1, S2. No additional sounds. ABDOMEN: Normoactive bowel sounds, no tenderness, no organomegaly, no masses. EXTREMITIES: No cyanosis, no clubbing, no edema. CENTRAL NERVOUS SYSTEM: The patient is confused. and she moves all extremities. ASSESSMENT: 1. Myelodysplasia with leukemia transformation. 2. Severe anemia and thrombocytopenia secondary to the above. 3. Type 2 diabetes mellitus with hyperglycemia. 4. Respiratory failure, on BiPAP. PLAN: Discussed with the regarding comforting care and hospice. He is still to discuss with his children and decide. For now, we will continue current management. [facility] Venkatesh Ray MD cc: [phone] TT: 07/17/2016 20:08:57 Confirmation # [id number] Dictation # [id number] MTDD
--- NOTE | 2016-07-17 23:16 | CP.PCM.PN ---
Subjective - Date & Time of Evaluation Date of Evaluation: 07/17/16 Time of Evaluation: 23:16 - Subjective Subjective: CHIEF COMPLAINTS TODAY : afebrile patient awake, weak, minimally responsive ON BIPAP. SEEN BY PULMONARY ROS. as observed.PATIENT MINIMALLY RESPONSIVE/DEMENTIA HEENT : +VE BIPAP Resp : No cough, wheezing ,pleuritic CP ,or hemoptysis. Cardio : No anginal CP, PND, orthopnea, palpitation GI : No abd.pain, n/v ,diarrhea or GI bleeding . FULL TIME PARAMEDIC : No headache, vertigo, focal deficit. Musculoskel : No joint swelling , Derm : MULTIPLE BRUISES ON EXTREMITIES Psych : Normal affect. Ext : No swelling ,calf pain PE. Pt. is awake V.S As noted in the chart Head ,ear nose,throat and eyes : Normal.+VE BIPAP Neck : Supple with normal carotids. Lungs: DIMINISHED BREATH SOUNDS Heart : S1 & S2 normal with S4. No murmur. Abd : Soft non tender with normal bowel sounds. Neuro : Moves all ext. with no localized deficit. Ext : No edema with intact pulses.Non tender calves Derm : MULTIPLE BRUISES ON EXTREMITIES UPPER AND LOWER. LABS/RADIOLOGY: 07/17 wbc 74.9 H/H 7.5 AND 23.3, PLT 10 K cREATININE 1.6 /BUN 48-INCREASING URINE CULTURE- E.COLI S -IMIPENEM AND LACTOBACILLUS. BLOOD CULTURES -VE SO FAR ASSESSMENT/PLAN : IMPRESSION; -RESPIRATORY FAILURE 0N BIPAP -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 - UROSEPSIS- E. COLI/LACTOBACILLUS -SEVERE ANEMIA -THROMBOCYTOPENIA. -DIABETES MELLITUS. -HYPERTENSION -CHRONIC KIDNEY DISEASE ? PRERENAL VERSUS RENAL. -ALZHEIMER'S DEMENTIA. PLAN; ON iv DIFLUCAN 100 MG ONCE A DAY DAILY X5 DAYS ON iv pRIMAXIN 500 EVERY 6 HOURLY SENSITIVITY REPORTED TO BE LESS THAN 0.25. CONTINUE iv VANCOMYCIN 1 G EVERY 24 HOURLY FOR GRAM-POSITIVE COVERAGE .07/14 VANCO TROUGH LEVEL -PENDING WATCH RENAL FUNCTIONS. HEMATOLOGY ONCOLOGY ON THE CASE.WILL DISCUSS. PALLIATIVE CARE ON CASE PROGNOSIS POOR/ Objective - Vital Signs/Intake and Output Vital Signs (last 24 hours): Temp Pulse Resp BP Pulse Ox 98.2 F 92 H 20 179/67 H 100 07/17/16 15:00 07/17/16 19:04 07/17/16 15:00 07/17/16 15:00 07/17/16 15:00 Intake and Output: 07/17/16 07/18/16 18:59 06:59 Intake Total 0 300 Balance 0 300 - Medications Medications: Current Medications Acetaminophen (Tylenol 325mg Tab) 650 mg PO Q6H PRN PRN Reason: Pain, moderate (4-7) Last Admin: 07/15/16 10:55 Dose: 650 mg Albuterol/Ipratropium (Duoneb 3 Mg/0.5 Mg (3 Ml) Ud) 3 ml INH RQ6 ON LICENSE OF [facility] Last Admin: 07/17/16 19:04 Dose: 3 ml Bacitracin (Bacitracin) 0 gm TOP DAILY [facility] Last Admin: 07/17/16 12:16 Dose: 1 applic Colchicine (Colocrys) 0.6 mg PO DAILY [facility] OF [facility] Last Admin: 07/17/16 11:59 Dose: Not Given Vancomycin HCl 1 gm/ Sodium (Chloride) 250 mls @ 166.7 mls/hr IVPB Q24H ON LICENSE OF [facility] Last Admin: 07/17/16 01:00 Dose: 166.7 mls/hr Sodium Chloride (Sodium Chloride 0.9%) 1,000 mls @ 100 mls/hr IV .Q10H ON LICENSE OF [facility] Last Admin: 07/16/16 08:34 Dose: Not Given Imipenem/Cilastatin Sodium 500 (mg/ Sodium Chloride) 100 mls @ 100 mls/hr IVPB Q6H ON LICENSE OF [facility] Last Admin: 07/17/16 19:19 Dose: 100 mls/hr Fluconazole (Diflucan Iv 100 Mg/50 Ml Ns) 50 mls @ 100 mls/hr IVPB DAILY ON [facility] OF [facility] Last Admin: 07/17/16 12:03 Dose: 100 mls/hr Insulin Aspart (Novolog) 0 unit SC ACHS [facility] PRN Reason: Protocol Last Admin: 07/17/16 21:57 Dose: Not Given Insulin Detemir (Levemir) 20 unit SC Q12 ON [facility] OF [facility] Last Admin: 07/17/16 21:56 Dose: 20 unit Methylprednisolone (Solu-Medrol) 40 mg IVP Q8 [facility] Last Admin: 07/17/16 21:57 Dose: 40 mg Multivitamins/Minerals (Therapeutic-M Tab) 1 tab PO DAILY ON [facility] Last Admin: 07/17/16 12:00 Dose: Not Given Nystatin (Nystatin Oral Susp) 5 ml PO QID ON LICENSE OF [facility] Last Admin: 07/17/16 23:05 Dose: Not Given Sertraline HCl (Zoloft) 50 mg PO HS ON LICENSE OF [facility] Last Admin: 07/17/16 23:05 Dose: Not Given Sodium Bicarbonate (Sodium Bicarbonate Tab) 650 mg PO BID ON LICENSE OF [facility] Last Admin: 07/17/16 17:17 Dose: Not Given - Labs Labs: 07/17/16 11:06 07/17/16 11:06 PT 13.0 SECONDS (9.7-12.2) H 07/13/16 01:10 INR 1.2 07/13/16 01:10 APTT 26 SECONDS (21-34) 07/13/16 01:10
[2016-07-18] MEDS: Albuterol-Ipratrop 3 mg / 0.5 (3 ml) UD INH SCH ×4 (01:46→20:08)
[2016-07-18] MEDS: MethylPREDNISolone 40 mg Vial IVP SCH ×3 (05:31→21:40)
[2016-07-18] MEDS: (Novolog) Insulin Aspart, Recombinant 100 u/ml 10 ml vial SC SCH ×4 (08:10→21:41)
[2016-07-18] MEDS: Insulin Detemir 100 units/ml Vial (Levemir) SC SCH ×2 (09:30→21:32)
[2016-07-18] MEDS: Bacitracin Ointment 30 GM TUBE TOP SCH (09:51)
[2016-07-18] MEDS: Multivitamin With Minerals Tab PO SCH (09:54)
[2016-07-18] MEDS: Nystatin 100,000 Units/ml Oral Susp 5 ml UD PO SCH ×4 (09:54→21:41)
[2016-07-18] MEDS: Fluconazole IV 100mg/50 ml NS 50 ML IVPB SCH (10:10)
[2016-07-18] MEDS ORDERED: Scopolamine 1.5 mg/24 hr Patch TD SCH (19:15)
--- NOTE | 2016-07-18 20:05 | CP.PCM.PN ---
Subjective - Date & Time of Evaluation Date of Evaluation: 07/18/16 Time of Evaluation: 20:05 - Subjective Subjective: CHIEF COMPLAINTS TODAY : afebrile patient awake, weak, minimally responsive ON BIPAP. BY HER SIDE ROS. as observed.PATIENT MINIMALLY RESPONSIVE/DEMENTIA HEENT : +VE BIPAP Resp : No cough, wheezing ,pleuritic CP ,or hemoptysis. Cardio : No anginal CP, PND, orthopnea, palpitation GI : No abd.pain, n/v ,diarrhea or GI bleeding . [employer] : No headache, vertigo, focal deficit. Musculoskel : No joint swelling , Derm : MULTIPLE BRUISES ON EXTREMITIES Psych : Normal affect. Ext : No swelling ,calf pain PE. Pt. is awake V.S As noted in the chart Head ,ear nose,throat and eyes : Normal.+VE BIPAP Neck : Supple with normal carotids. Lungs: DIMINISHED BREATH SOUNDS Heart : S1 & S2 normal with S4. No murmur. Abd : Soft non tender with normal bowel sounds. Neuro : Moves all ext. with no localized deficit. Ext : No edema with intact pulses.Non tender calves Derm : MULTIPLE BRUISES ON EXTREMITIES UPPER AND LOWER. LABS/RADIOLOGY: 07/17 wbc 74.9 H/H 7.5 AND 23.3, PLT 10 K cREATININE 1.6 /BUN 48-INCREASING URINE CULTURE- E.COLI S -IMIPENEM AND LACTOBACILLUS. Objective - Vital Signs/Intake and Output Vital Signs (last 24 hours): Temp Pulse Resp BP Pulse Ox 98.3 F 152 H 20 162/82 H 99 07/18/16 16:00 07/18/16 16:00 07/18/16 16:00 07/18/16 16:00 07/18/16 16:00 - Medications Medications: Current Medications Acetaminophen (Tylenol 325mg Tab) 650 mg PO Q6H PRN PRN Reason: Pain, moderate (4-7) Last Admin: 07/15/16 10:55 Dose: 650 mg Acetaminophen (Tylenol 650 Mg Supp) 650 mg HI Q6 PRN PRN Reason: Pain, moderate (4-7) Last Admin: 07/18/16 14:58 Dose: 650 mg Albuterol/Ipratropium (Duoneb 3 Mg/0.5 Mg (3 Ml) Ud) 3 ml INH RQ6 [facility] Last Admin: 07/18/16 13:15 Dose: 3 ml Bacitracin (Bacitracin) 0 gm TOP DAILY [facility] Last Admin: 07/18/16 09:51 Dose: 1 applic Colchicine (Colocrys) 0.6 mg PO DAILY [facility] Last Admin: 07/18/16 09:49 Dose: Not Given Vancomycin HCl 1 gm/ Sodium (Chloride) 250 mls @ 166.7 mls/hr IVPB Q24H [facility] Last Admin: 07/18/16 00:07 Dose: 166.7 mls/hr Sodium Chloride (Sodium Chloride 0.9%) 1,000 mls @ 100 mls/hr IV .Q10H [facility] Last Admin: 07/16/16 08:34 Dose: Not Given Imipenem/Cilastatin Sodium 500 (mg/ Sodium Chloride) 100 mls @ 100 mls/hr IVPB Q6H [facility] Last Admin: 07/18/16 19:31 Dose: 100 mls/hr Fluconazole (Diflucan Iv 100 Mg/50 Ml Ns) 50 mls @ 100 mls/hr IVPB DAILY [facility] Last Admin: 07/18/16 10:10 Dose: 100 mls/hr Insulin Aspart (Novolog) 0 unit SC ACHS [facility] PRN Reason: Protocol Last Admin: 07/18/16 17:26 Dose: 4 unit Insulin Detemir (Levemir) 20 unit SC Q12 [facility] Last Admin: 07/18/16 09:30 Dose: 20 unit Methylprednisolone (Solu-Medrol) 40 mg IVP Q8 [facility] Last Admin: 07/18/16 14:43 Dose: 40 mg Morphine Sulfate (Morphine) 1 mg IVP Q2 PRN PRN Reason: Sedation Last Admin: 07/18/16 19:39 Dose: 1 mg Multivitamins/Minerals (Therapeutic-M Tab) 1 tab PO DAILY [facility] Last Admin: 07/18/16 09:54 Dose: Not Given Nystatin (Nystatin Oral Susp) 5 ml PO QID [facility] Last Admin: 07/18/16 17:24 Dose: Not Given Scopolamine (Transderm-Scop) 1 patch TD Q3D [facility] Sertraline HCl (Zoloft) 50 mg PO HS [facility] Last Admin: 07/17/16 23:05 Dose: Not Given Sodium Bicarbonate (Sodium Bicarbonate Tab) 650 mg PO BID [facility] Last Admin: 07/18/16 17:24 Dose: Not Given - Labs Labs: 07/17/16 11:06 04/07/17 11:06 PT 13.0 SECONDS (9.7-12.2) H 07/13/16 01:10 INR 1.2 07/13/16 01:10 APTT 26 SECONDS (21-34) 07/13/16 01:10 Assessment and Plan - Assessment and Plan (Free Text) Assessment: IMPRESSION; -RESPIRATORY FAILURE 0N BIPAP -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 - UROSEPSIS- E. COLI/LACTOBACILLUS -SEVERE ANEMIA -THROMBOCYTOPENIA. -DIABETES MELLITUS. -HYPERTENSION -CHRONIC KIDNEY DISEASE ? PRERENAL VERSUS RENAL. -ALZHEIMER'S DEMENTIA. PLAN; ON iv DIFLUCAN 100 MG ONCE A DAY DAILY X5 DAYS ON iv pRIMAXIN 500 EVERY 6 HOURLY SENSITIVITY REPORTED TO BE LESS THAN 0.25. CONTINUE iv VANCOMYCIN 1 G EVERY 24 HOURLY FOR GRAM-POSITIVE COVERAGE ./ VANCO TROUGH LEVEL -PENDING WATCH RENAL FUNCTIONS. HEMATOLOGY ONCOLOGY ON THE CASE.WILL DISCUSS. PALLIATIVE CARE ON CASE REFUSING BLOOD TRANSFUSION, SPOKE TO SON WHO ALSO WANTS BLOOD TRANSFUSION TO BE HELD. PROGNOSIS POOR/ CASE DISCUSSED WITH RN MS OCONENLL.
--- NOTE | 2016-07-18 20:25 | CP.PCM.PN ---
Subjective - Date & Time of Evaluation Date of Evaluation: 07/18/16 Time of Evaluation: 20:25 - Subjective Subjective: afebrile patient awake, weak, minimally responsive ON BIPAP. Objective - Vital Signs/Intake and Output Vital Signs (last 24 hours): Temp Pulse Resp BP Pulse Ox 98.3 F 96 H 20 162/82 H 99 07/18/16 16:00 07/18/16 20:08 07/18/16 16:00 07/18/16 16:00 07/18/16 16:00 - Medications Medications: Current Medications Acetaminophen (Tylenol 325mg Tab) 650 mg PO Q6H PRN PRN Reason: Pain, moderate (4-7) Last Admin: 07/15/16 10:55 Dose: 650 mg Acetaminophen (Tylenol 650 Mg Supp) 650 mg [place] Q6 PRN PRN Reason: Pain, moderate (4-7) Last Admin: 07/18/16 14:58 Dose: 650 mg Albuterol/Ipratropium (Duoneb 3 Mg/0.5 Mg (3 Ml) Ud) 3 ml INH RQ6 [facility] Last Admin: 07/18/16 20:08 Dose: 3 ml Bacitracin (Bacitracin) 0 gm TOP DAILY [facility] Last Admin: 07/18/16 09:51 Dose: 1 applic Colchicine (Colocrys) 0.6 mg PO DAILY [facility] Last Admin: 07/18/16 09:49 Dose: Not Given Vancomycin HCl 1 gm/ Sodium (Chloride) 250 mls @ 166.7 mls/hr IVPB Q24H [facility] Last Admin: 07/18/16 00:07 Dose: 166.7 mls/hr Sodium Chloride (Sodium Chloride 0.9%) 1,000 mls @ 100 mls/hr IV .Q10H [facility] Last Admin: 07/16/16 08:34 Dose: Not Given Imipenem/Cilastatin Sodium 500 (mg/ Sodium Chloride) 100 mls @ 100 mls/hr IVPB Q6H [facility] Last Admin: 07/18/16 19:31 Dose: 100 mls/hr Fluconazole (Diflucan Iv 100 Mg/50 Ml Ns) 50 mls @ 100 mls/hr IVPB DAILY [facility] Last Admin: 07/18/16 10:10 Dose: 100 mls/hr Insulin Aspart (Novolog) 0 unit SC ACHS [facility] PRN Reason: Protocol Last Admin: 07/18/16 17:26 Dose: 4 unit Insulin Detemir (Levemir) 20 unit SC Q12 [facility] Last Admin: 07/18/16 09:30 Dose: 20 unit Methylprednisolone (Solu-Medrol) 40 mg IVP Q8 [facility] Last Admin: 07/18/16 14:43 Dose: 40 mg Morphine Sulfate (Morphine) 1 mg IVP Q2 PRN PRN Reason: Sedation Last Admin: 07/18/16 19:39 Dose: 1 mg Multivitamins/Minerals (Therapeutic-M Tab) 1 tab PO DAILY [facility] Last Admin: 07/18/16 09:54 Dose: Not Given Nystatin (Nystatin Oral Susp) 5 ml PO QID [facility] Last Admin: 07/18/16 17:24 Dose: Not Given Scopolamine (Transderm-Scop) 1 patch TD Q3D [facility] Sertraline HCl (Zoloft) 50 mg PO HS [facility] Last Admin: 07/17/16 23:05 Dose: Not Given Sodium Bicarbonate (Sodium Bicarbonate Tab) 650 mg PO BID [facility] Last Admin: 07/18/16 17:24 Dose: Not Given - Labs Labs: 07/17/16 11:06 07/17/16 11:06 PT 13.0 SECONDS (9.7-12.2) H 07/13/16 01:10 INR 1.2 07/13/16 01:10 APTT 26 SECONDS (21-34) 07/13/16 01:10 - Head Exam Head Exam: ATRAUMATIC, NORMOCEPHALIC - ENT Exam ENT Exam: Mucous Membranes Moist - Neck Exam Neck Exam: Normal Inspection - Respiratory Exam Respiratory Exam: Decreased Breath Sounds - Cardiovascular Exam Cardiovascular Exam: REGULAR RHYTHM - GI/Abdominal Exam GI & Abdominal Exam: Soft, Normal Bowel Sounds Assessment and Plan - Assessment and Plan (Free Text) Assessment: -RESPIRATORY FAILURE 0N BIPAP -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 - UROSEPSIS- E. COLI/LACTOBACILLUS -SEVERE ANEMIA -THROMBOCYTOPENIA. PLAN; ON iv DIFLUCAN 100 MG ONCE A DAY DAILY X5 DAYS ON iv pRIMAXIN 500 EVERY 6 HOURLY SENSITIVITY REPORTED TO BE LESS THAN 0.25. CONTINUE iv VANCOMYCIN 1 G EVERY 24 HOURLY FOR GRAM-POSITIVE COVERAGE ./ VANCO TROUGH LEVEL -PENDING WATCH RENAL FUNCTIONS. HEMATOLOGY ONCOLOGY ON THE CASE.WILL DISCUSS. PALLIATIVE CARE ON CASE
[2016-07-19] MEDS: Albuterol-Ipratrop 3 mg / 0.5 (3 ml) UD INH SCH ×2 (01:22→08:09)
[2016-07-19 01:29] VITALS: BP 153/60; PULSE 106; RESP 21; TEMP 98.9; O2SAT 100
[2016-07-19] MEDS: MethylPREDNISolone 40 mg Vial IVP SCH (05:59)
--- NOTE | 2016-07-19 08:28 | CP.PCM.PRO ---
Pronouncement of Note - Clinical Findings Physical Exam: No Response Verbal/Painful Stimuli, Absent Peripheral Pulses{ Carotid & Femoral}, Absent Heart & Breath Sounds, No Pupillary Light Reflex, No Corneal Reflex, Pupils Fixed & Dilated, Absence of Vital Signs - Pronouncement Time Time of Pronouncement of : 08:08 Additional Comments: House Doc Exiration Note: At 8:05, I was notified by nursing to evaluate our patient due to unresponsiveness. Patients code status was DNR/DNI. The patient was not responsive to Verbal Stimuli or Painful Stimuli , her peripheral pulses were absent (Carotid & Femoral), her heart sounds and breath sounds were absent, there was no Pupillary light reflex, no corneal reflex, and pupils were fixed and dilated. There was an absence of all vital signs. At 8:08, the patient was pronounced and both her and Dr. Ray were notified. - Notifications Pronouncement Notifications: Family Notified Plumbing And Heating Mechanic Notified: No - Autopsy Autopsy Requested: No
--- NOTE | 2016-07-20 10:01 | PN ---
DATE: 07/18/2016 The patient is seen today 07/18/2016. The patient is on BiPAP and she is lethargic. PHYSICAL EXAMINATION: VITAL SIGNS: Blood pressure 130/79, temperature 97.8, respiratory rate 16, pulse 72. NECK: No JVD, no carotid bruit, no lymph node, no thyromegaly. CHEST AND LUNGS: Bilateral symmetrical expansion. Bilateral basal rales. CARDIOVASCULAR: PMI not localized. S1, S2. No additional sounds. ABDOMEN: Decreased bowel sounds, no tenderness, no organomegaly, no masses. EXTREMITIES: No cyanosis, no clubbing, no edema. CENTRAL NERVOUS SYSTEM: Alert, awake, confused. She moves all extremities equally. ASSESSMENT: 1. Myelodysplasia with leukemic transformation. 2. Severe anemia and thrombocytopenia secondary to the above. 3. Type 2 diabetes mellitus with hyperglycemia. 4. Dementia. 5. Gouty arthritis. 6. Hypertension. PLAN: Discussed the plan of care with the patient's son, Dr. Tamir Perez, who is a sales account leader at [employer] and the decision after discussing with his father is to refer the patient to home hospice. We will transfuse her 1 unit of packed RBCs before discharge and we will order morphine sublingual as well as a scopolamine patch and oxygen. Sarika Ray MD cc: [id number] TT: 07/18/2016 17:19:39 Confirmation # [id number] Dictation # [id number] libby REDDY
--- NOTE | 2016-08-24 18:45 | DS ---
Late entry for discharge summary done on 07/19/2016. REASON FOR ADMISSION: This was an 89-year-old female who was admitted for severe anemia an d thrombocytopenia. 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 The patient was transfused packed RBCs and antiplatelets. The patient's cond ition was deteriorating and she started to develop congestive heart failure. The family signed a DNR /DNI. Oncologist did not offer any further cancer treatments at this point due to the multiple comor bidities and the very poor functional status of the patient. The patient on 07/19/2016. FINAL DIAGNOSES: Severe anemia, thrombocytopenia, myelodysplasia, leukemia conversion, history of ty pe 2 diabetes mellitus, hypertension and gouty arthritis. [facility] MD cc: [id number] TT: 08/24/2016 18:45:09 libby
== END 2016-07-19 13:30 | DRG 840 ==
LOC: C.ER 23:40 → SUPCPDRO 23:40 → C.3T 07-13 03:27
PROVIDERS: ADMIT Internal Medicine; ATTEND Internal Medicine
PROC: 30233N1 Transfusion of Nonautologous Red Blood Cells into Peripheral Vein, Percutaneous Approach (ICD-10-PCS; principal; 2016-07-13)
PROC: 5A0945Z Assistance with Respiratory Ventilation, 24-96 Consecutive Hours (ICD-10-PCS; 2016-07-16)
DX: C95.90 Leukemia, unspecified not having achieved remission (principal); J96.00 Acute respiratory failure, unspecified whether with hypoxia or hypercapnia; D61.818 Other pancytopenia; N39.0 Urinary tract infection, site not specified; E11.65 Type 2 diabetes mellitus with hyperglycemia; B37.0 Candidal stomatitis; E11.22 Type 2 diabetes mellitus with diabetic chronic kidney disease; B96.20 Unspecified Escherichia coli [E. coli] as the cause of diseases classified elsewhere; I12.9 Hypertensive chronic kidney disease with stage 1 through stage 4 chronic kidney disease, or unspecified chronic kidney disease; N18.9 Chronic kidney disease, unspecified; D46.9 Myelodysplastic syndrome, unspecified; M16.11 Unilateral primary osteoarthritis, right hip; G30.9 Alzheimer's disease, unspecified; R53.1 Weakness; F02.80 Dementia in other diseases classified elsewhere, unspecified severity, without behavioral disturbance, psychotic disturbance, mood disturbance, and anxiety; E78.5 Hyperlipidemia, unspecified; M10.9 Gout, unspecified; R41.0 Disorientation, unspecified; Z66 Do not resuscitate; Z51.5 Encounter for palliative care; Z95.2 Presence of prosthetic heart valve; Z79.4 Long term (current) use of insulin; Z90.710 Acquired absence of both cervix and uterus; Z98.49 Cataract extraction status, unspecified eye; Z87.01 Personal history of pneumonia (recurrent); Z87.81 Personal history of (healed) traumatic fracture